=== PATIENT | female | born 1970 | race Hispanic/Latino ===

== ENCOUNTER 2018-04-18 14:39 | Emergency (ER) | payer OTHER ==
[~2018-04-18] VITALS: Ht 152.4 cm; Wt 55.8 kg
[2018-04-18 16:00] LABS: ABSOLUTE BASOPHIL COUNT 0 /CUMM (0.0-0.2); ABSOLUTE EOSINOPHIL COUNT 0.5 /CUMM (0.0-0.7); ABSOLUTE GRANULOCYTE CT 3.1 /CUMM (1.4-6.5); ABSOLUTE LYMPH COUNT 2.7 /CUMM (1.2-3.4); ABSOLUTE MONOCYTE COUNT 0.4 /CUMM (0.10-0.60); BASOPHIL % 0.6 % (0.0-2.0); EOSINOPHIL % 7.7 % (0-5); GRANULOCYTE % 46.5 % (42.2-75.2); HEMATOCRIT 41.7 % (37-47); MEAN CORPUSCULAR HGB 31.4 PG (27.0-31.0); MEAN CORPUSCULAR HGB CONC 34.1 G/DL (33.0-37.0); MEAN CORPUSCULAR VOLUME 92.1 FL (81.0-99.0); MEAN PLATELET VOLUME 8.2 FL (7.4-10.4); PLATELET COUNT 240 /CUMM (130-400); RBC DISTRIBUTION WIDTH 13.3 % (11.5-14.5); RED BLOOD CELL CT 4.53 /CUMM (4.20-5.40); WHITE BLOOD CELL COUNT 6.7 /CUMM (4.8-10.8)
--- NOTE | 2018-04-18 16:02 | ED GI/GU/ABDOMINAL COMPLAINT ---
History of Present Illness General Chief Complaint: Abdominal Pain/Flank Pain Stated Complaint: SEVERE R SIDED ABD FLANK PAIN Source: patient Exam Limitations: no limitations Vital Signs & Intake/Output Vital Signs & Intake/Output Vital Signs Date Time Temp Pulse Resp B/P B/P Pulse O2 O2 Flow FiO2 Mean Ox Delivery Rate 04/18 1908 Room Air 04/18 1908 98.8 71 18 140/68 99 Room Air 04/18 1444 98.1 82 15 133/82 98 Room Air Room Air Allergies Coded Allergies: amoxicillin (Intermediate, RASH 04/18/18) ketorolac (From TORADOL) (Intermediate, RASH 04/18/18) tramadol (Intermediate, RASH 04/18/18) Triage Note: PT TO ED FOR C/C OF R SIDED FLANK PAIN THAT STARTED 1 MONTH AGO BUT WORSENED OVER THE LAST 3 DAYS. +NAUSEA, +BURNING WITH URINATION. Triage Nurses Notes Reviewed? yes ? N Is pt currently ? No HPI: Ms. Jacquelyn Mason is a 47-year-old female patient with a past medical history significant for IBS, comes to the emergency department complaining of severe right-sided abdominal pain. Patient states the pain is located in the right upper quadrant with radiation to the right flank and back; she states this pain has being going on since about 1 month ago and has progressively gotten worse with a sharp increase in the intensity as of 2 days ago now a 9 out of 10, constant in nature, with no alleviating or aggravating factors. Of note the patient also reports passing of what she described as "pink looking clots" in her urine for the past week, associated with increased urinary frequency, chills and burning sensation on urination. She denies recent fever, changes in her stool pattern, bloody stools, chest pain or seeing urinary sediment. (Simone Meyers MD,[facility]) Reconcile Medications Ondansetron (Zofran Odt) 4 MG TAB.RAPDIS 1 TAB SL TID PRN nausea Oxycodone HCl/Acetaminophen (Percocet 5-325 MG Tablet) 5 MG-325 MG TABLET 1-2 TAB PO Q6H PRN severe pain (Otilia ESTEVEZ,René Sánchez) Past History Travel History Traveled to [place] past 21 day No Medical History Any Pertinent Medical History? see below for history Respiratory: asthma Gastrointestinal: irritable bowel syndrome Pneumonia Vaccine: 08/26/07 Influenza Vaccine: 07/20/06 Surgical History Surgical History: non-contributory Psychosocial History Who do you live with Spouse Services at Home None What is your primary language Swedish Tobacco Use: Never used ETOH Use: denies use Illicit Drug Use: denies illicit drug use Family History Hx Contributory? Yes (Jesus Swanson MD) Review of Systems Review of Systems Constitutional: Reports: see HPI, chills. (Jesus Swanson MD) Review of Systems Constitutional: Reports: no symptoms. EENTM: Reports: no symptoms. Respiratory: Reports: no symptoms. Cardiovascular: Reports: no symptoms. GI: Reports: see HPI, abdominal pain, nausea. Genitourinary: Reports: see HPI, hematuria, pain. Musculoskeletal: Reports: no symptoms. Skin: Reports: no symptoms. Neurological/Psychological: Reports: no symptoms. Hematologic/Endocrine: Reports: no symptoms. Immunologic/Allergic: Reports: no symptoms. All Other Systems: Reviewed and Negative (Lester Muhammad MD) Physical Exam Physical Exam General Appearance: alert, awake, anxious, severe distress Gastrointestinal: normal bowel sounds, soft, no organomegaly, tenderness Comments: General: Pt visibly in distress, shifting in bed looking for antalgic position, though cooperative as her pain allows. Head: Normocephalic, atraumatic. No signs of trauma. Eyes: Normal inspection bilaterally. Ears: Normal inspection bilaterally. Throat/mouth : Moist mucosa. No erythema seen. Neck: Supple, full range of motion. Heart: Regular rate and rhythm, no murmurs rubs or gallops. Lungs: Clear to auscultation bilaterally with normal air entry. Chest: Nontender. Back: Normal range of motion, positive CVA tenderness on the R side. Abdomen:No lesions seen. Bowel sounds present; abdomen is soft, nondistended though tender to light palpation on RUQ, R flank and epigastrium. There is no guarding or rebound tenderness. Extremities: Normal range of motion grossly, equal radial pulses, no cyanosis clubbing or edema. Neurologic: Cranial nerves grossly intact, no dysarthria. Core Measures ACS in differential dx? No Sepsis Present: No Sepsis Focused Exam Completed? No (Jesus Swanson MD) Physical Exam Head: atraumatic, normal appearance Eyes: Bilateral: PERRL, EOMI. Ears, Nose, Throat, Mouth: hearing grossly normal, moist mucous membrane Neck: normal inspection, supple, full range of motion Respiratory: normal breath sounds, chest non-tender, no respiratory distress, lungs clear Cardiovascular: regular rate/rhythm, normal peripheral pulses Back: CVA tenderness (R), CVA tenderness (L) Extremities: normal range of motion Neurologic/Psych: no motor/sensory deficits, awake, alert, oriented x 3, normal gait, normal mood/affect (Otilia ESTEVEZ,René Sánchez) Progress Differential Diagnosis: biliary colic, cholecystitis, kidney stone Diagnostic Imaging: Viewed by Me: Ultrasound. Initial ED EKG: none (Simone Meyers MD,[facility]) Plan of Care: Orders Procedure Date/time Status URINALYSIS 04/18 1444 Active LIPASE 04/18 1444 Complete LACTIC ACID 04/18 1444 Complete COMPREHENSIVE METABOLIC PANEL 04/18 1444 Complete CBC WITHOUT DIFFERENTIAL 04/18 1444 Complete AMYLASE 04/18 1444 Complete Laboratory Tests 04/18/18 1744: Lactic Acid Cancelled 04/18/18 1551: Anion Gap 9, Estimated GFR > 60, BUN/Creatinine Ratio 28.0 H, Glucose 115 H, Lactic Acid 1.3, Calcium 8.9, Total Bilirubin 0.2, AST 29, ALT 62 H, Alkaline Phosphatase 83, Total Protein 7.0, Albumin 4.0, Globulin 3.0, Albumin/Globulin Ratio 1.3, Amylase 65, Lipase 194, CBC w Diff NO MAN DIFF REQ, RBC 4.53, MCV 92.1, MCH 31.4 H, MCHC 34.1, RDW 13.3, MPV 8.2, Gran % 46.5, Lymphocytes % 39.8 , Monocytes % 5.4, Eosinophils % 7.7 H, Basophils % 0.6, Absolute Granulocytes 3.1, Absolute Lymphocytes 2.7, Absolute Monocytes 0.4, Absolute Eosinophils 0.5, Absolute Basophils 0 Diagnostic Imaging: Viewed by Me: CT Scan, Ultrasound. Discussed w/RAD: CT Scan, Ultrasound. Radiology Impression: Multiple nonobstructive bilateral renal calculi. No hydronephrosis. No evidence for acute abdominal or pelvic inflammatory or infectious processes. Hepatic steatosis., Liver of diffuse increased echogenicity without focal lesions. The appearance is nonspecific, but consistent with fatty infiltration. Neither cholelithiasis nor cholecystitis. Hand-Off Endorsed To: René Bingham MD Endorsed Time: 1899 Pending: labs, other (clinical response) (Sabina ESTEVEZ,Lester) Departure Departure Condition: Stable Referrals: Unknown (PCP/Family) Departure Forms: Customer Survey General Discharge Information (Simone Meyers MD,Jesus) Departure Clinical Impression Primary Impression: Renal colic on left side Resident Co-Sign Statement Statement: ED Attending supervision documentation- x I saw and evaluated the patient. I have also reviewed all the pertinent lab results and diagnostic results. I agree with the findings and the plan of care as documented in the Resident's documentation. L flank pain, hematuria, hx stones still uncomfortable after tylenol and morphine. [] I have reviewed the ED Record and agree with the Resident's documentation. [] Additions or exceptions (if any) to the Resident's note and plan are summarized below: [] (Sabina ESTEVEZ,Lester) Departure Disposition: HOME OR SELF CARE Additional Instructions: follow up with your urologist rerturn if symptoms worsen or for any concerns Prescriptions: Current Visit Scripts Ondansetron (Zofran Odt) 1 TAB SL TID PRN nausea #10 TAB Oxycodone HCl/Acetaminophen (Percocet 5-325 MG Tablet) 1-2 TAB PO Q6H PRN severe pain #15 TAB (René Bingham MD)
--- NOTE | 2018-04-18 16:54 | ULTRASOUND REPORT ---
EXAMINATION: ABDOMINAL ULTRASOUND LIMITED CLINICAL INFORMATION: Right upper quadrant pain. Right flank pain. COMPARISON: 09/22/2012. TECHNIQUE: Real-time imaging of the right upper quadrant abdominal viscera. FINDINGS: PANCREAS: The visualized pancreatic head and body are normal in appearance. The remainder of the pancreas is obscured from visualization by the overlying bowel gas. LIVER: The liver is of normal size and diffuse increased echogenicity without focal lesions nor intrahepatic biliary ductal dilation. GALLBLADDER: Normal. The gallbladder is contracted though without evidence of stones, sludge, polyps, wall thickening or pericholecystic fluid. COMMON BILE DUCT: Normal in caliber measuring 0.4 cm in diameter. RIGHT KIDNEY: Normal. No hydronephrosis. No renal calculi or focal parenchymal lesions. The kidney measures 8.5 cm in maximum dimension. FREE FLUID: None. IMPRESSION: Liver of diffuse increased echogenicity without focal lesions. The appearance is nonspecific, but consistent with fatty infiltration. Neither cholelithiasis nor cholecystitis.
--- NOTE | 2018-04-18 17:52 | CT SCAN REPORT ---
EXAMINATION: CT ABDOMEN AND PELVIS WITHOUT CONTRAST CLINICAL INFORMATION: Right-sided pain. Dysuria. COMPARISON: Same day ultrasound. Abdominal and pelvic CT from 09/22/2012. TECHNIQUE: Contiguous axial thin section helical images of the abdomen and pelvis were performed without oral or IV contrast. The data set was reformatted in the coronal and sagittal planes and reviewed on an independent workstation. DLP: 252 mGy-cm. FINDINGS: The visualized lung bases are clear. The visualized portions of the heart are unremarkable. The liver is of normal size and attenuation without focal lesions nor intrahepatic biliary ductal dilation. A normal gallbladder is identified. There is no wall thickening or discernible pericholecystic fluid. The spleen,, adrenal glands are unremarkable. Both kidneys are of normal size and attenuation without hydronephrosis. Within the upper pole of the right kidney, there is a 4 mm nonobstructive calculus. There is a 2 mm nonobstructive calculus within the interpole region. Within the upper pole of left kidney, there are 2 adjacent nonobstructive calculi. The largest measures 4 mm. There are additional smaller nonobstructive calculi within the left kidney. There is no abdominal free fluid. There is neither mesenteric nor retroperitoneal lymphadenopathy. Normal unopacified loops of small and large bowel are identified. There is no pelvic free fluid. The urinary bladder is unremarkable. There is neither pelvic nor inguinal lymphadenopathy. Bone windows: Neither sclerotic nor lytic bone lesions are identified. IMPRESSION: Multiple nonobstructive bilateral renal calculi. No hydronephrosis. No evidence for acute abdominal or pelvic inflammatory or infectious processes. Hepatic steatosis.
[2018-04-18] MEDS ORDERED: PERCOCET 5-3251 EACH PO (19:13)
[2018-04-18] MEDS ORDERED: ZOFRAN ODT4 M1 SL (19:13)
[2018-04-18 20:29] VITALS: BP 165/82
== END 2018-04-18 20:31 ==
LOC: ERH 14:39
PROVIDERS: Physician Assistant
DX: N23 Unspecified renal colic (principal); R10.11 Right upper quadrant pain; R31.9 Hematuria, unspecified
CPT/HCPCS: 74176; 96374; 96375; 96376; J0131; J2405